=== PATIENT | female | born 2005 | race Caucasian/White ===

== ENCOUNTER 2023-03-18 14:39 | Emergency (ER) | payer OTHER, SELFPAY ==
[2023-03-18 14:47] VITALS: BP 149/83; PULSE 114; RESP 16; TEMP 36.7; O2SAT 98; BMI 34.8
--- NOTE | 2023-03-18 14:48 | ED_ITS ---
HPI - Extremity Injury (Upper) General Chief Complaint: Wound/Laceration Stated Complaint: Finger lac Time Seen by Provider: 03/18/23 15:51 History of Present Illness HPI narrative: Patient complains of laceration to 4th and 5th fingers of the right hand while she was cutting something No numbness no weakness no tingling no difficulty moving fingers no other injury Related Data Allergies Allergy/AdvReac Type Severity Reaction Status Date / Time No Known Allergies Allergy Verified 03/18/23 14:46 PMFSH Past Medical History Source: nursing notes reviewed Social History Social History Advance Directives: No Advance Directives Information Provided: No Physical Exam Vital Signs: Vital Signs: Last Vital Signs Temp 98.0 F 03/18/23 14:47 Pulse 114 H 03/18/23 14:47 Resp 16 03/18/23 14:47 BP 149/83 H 03/18/23 14:47 Pulse Ox 98 03/18/23 14:47 BMI result Body Mass Index 34.8 General appearance is no distress Head normocephalic atraumatic Neck is supple Respiratory no distress Extremities full range of motion x4 Right hand exam the 4th and 5th fingers have superficial laceration on palmar surface of mid phalanx of both 4th and 5th fingers there each about 1 cm, neurovascular intact distal full flexor tendon function intact Neuro no focal motor sensory deficits Course Course Course Narrative: RME: 17yo F w/no significant past medical history presenting to the ED complaining laceration to right 2nd and 3rd digit s/p a cutting pumpkin [employer] Unknown last tetanus however sees Dr. martinez and is in school 2.5 cm laceration noted to the 2nd digit and 1.0 cm laceration to 3rd digit. Active bleeding Will need suture repair Full HPI, ROS and PE to be performed by primary ED provider. Patient was superficial lacerations to palmar surface of right 4th and 5th fingers The wounds are irrigated and cleansed There is no tendon or neurologic deficit, bleeding is controlled Steri-Strips are applied and bandage applied Bleeding controlled and patient is discharged Medications Administered Discontinued Medications Generic Name Dose Route Start Last Admin Trade Name Freq PRN Reason Stop Dose Admin Lidocaine HCl 5 ml 03/18/23 14:51 03/18/23 15:47 Lidocaine Hcl 1 % Mpf 5 Ml Vial INFILTRATI 03/18/23 14:52 5 ml ONCE ONE Administration Discharge Plan Discharge Clinical Impression: Laceration Patient Disposition: Home, Self-Care Additional Instructions: removed tape in 5 days, if it falls off by itself you do not have to replace it the wound will heal on its own Return any time for redness swelling pain discharge from wound any sign of infection any concerns Interventions: ED Discharge Assessment Last Done: 03/18/23 16:55 Discharge Date/Time: 03/18/23 16:55
[2023-03-18] MEDS: Lidocaine HCl 1 % MPF 5 ML VIAL INFILTRATI (15:47)
--- NOTE | 2023-03-18 16:09 | PC.NURSE ---
two wounds washed out per provider request, awaiting glue/stitches at this time
== END 2023-03-18 16:55 | disposition home or self-care (01) ==
PROVIDERS: Emergency Provider Emergency Medicine; PCP Pediatrics
DX: S61.210A Laceration without foreign body of right index finger without damage to nail, initial encounter (principal); S61.212A Laceration without foreign body of right middle finger without damage to nail, initial encounter; W26.0XXA Contact with knife, initial encounter; Y93.89 Activity, other specified; Y92.9 Unspecified place or not applicable; Y99.9 Unspecified external cause status
CPT/HCPCS: 12001; 12002; 99284

== ENCOUNTER 2023-09-13 14:27 | Outpatient (AMB) | payer OTHER, SELFPAY ==
[2023-09-13 14:30] VITALS: BP 138/82; PULSE 89; TEMP 36.6; O2SAT 98; BMI 34.0
--- NOTE | 2023-09-13 14:30 | AM.OFFWIN_ITS ---
Intake Vital Signs 09/13/23 14:30 Height 5 ft 1 in Weight 180 lb BMI 34.0 BP 138/82 Blood Pressure Location Rt brachial Position Sitting Pulse 89 Pulse Source Pulse Oximeter Temp 97.8 F Temp Source Oral Pulse Oximetry (%) 98 Oxygen Delivery Method Room Air Intake Visit Reasons: [employer] right foot swollen pain when walking Intake Note: pt is here for right foot pain with swelling while walking Patient Tobacco Use Status: Never used Tobacco Allergies No Known Allergies Allergy (Verified 09/13/23 14:31) Do you need a note to return to daycare/school/sports/work: No HPI HPI Comments History of Present Illness Details 18 y/o female patient who presents to [facility] clinic with c/o right foot pain and swelling with walking since yesterday morning. PFSH Social History Patient Tobacco Use Status: Never used Tobacco Review of Systems Const All systems reviewed & are unremarkable except as noted in HPI and below Physical Exam Vital Signs: Last Vital Signs Temp 97.8 F 09/13/23 14:30 Pulse 89 09/13/23 14:30 BP 138/82 09/13/23 14:30 Pulse Ox 98 09/13/23 14:30 Oxygen Delivery Method Room Air 09/13/23 14:30 BMI result Body Mass Index 34.0 Const General: comfortable and no acute distress Orientation/consciousness: patient oriented x3 Neuro General: patient oriented x3 Extrem General: Yes normal to inspection, Yes full ROM, Yes capillary refill normal, Yes no joint enlargement, Yes no clubbing, cyanosis or edema, Yes no pedal edema, Yes no calf tenderness, Yes normal gait and No Limp noted Right lower extremity: normal to inspection, full ROM and foot Details: normal capillary refill, normal to inspection and no edema; no tenderness Left lower extremity: normal to inspection and full ROM Assessment & Plan Assessment & Plan (1) Right foot pain: Code(s): M79.671 - Pain in right foot Plan: - Right foot not swollen, not tender and normal ROM - Acetaminophen for pain relief. Medications: New ibuprofen 400 mg PO Q8H 20 tabs 0RF Pain M79.671 - Pain in right foot Coding Level of Care Code Est Pt Level 3 (29292) Diagnoses Right foot pain M79.671 Time Spent (min) 15
== END 2023-09-13 14:50 | disposition home or self-care (01) ==
PROVIDERS: PCP Pediatrics; Visit Provider Nurse Practitioner Family
DX: M79.671 Pain in right foot (principal)
CPT/HCPCS: 99213